=== PATIENT | female | born 1965 | race Caucasian/White ===

== ENCOUNTER → 2021-02-06 | Outpatient (CLI) | payer OTHER | LOC: HEART 5 15:21 | DX: J44.9 Chronic obstructive pulmonary disease, unspecified (principal); R94.2 Abnormal results of pulmonary function studies | CPT/HCPCS: 94060; 94729 ==

== ENCOUNTER → 2021-02-21 | Outpatient (CLI) | payer OTHER | LOC: KOH-I 12:43 | DX: Z72.0 Tobacco use (principal); R91.1 Solitary pulmonary nodule | CPT/HCPCS: 71271 ==

== ENCOUNTER → 2021-08-22 | Outpatient (CLI) | payer OTHER | LOC: KOH-I 13:16 | DX: R91.1 Solitary pulmonary nodule (principal) | CPT/HCPCS: 71250 ==